=== PATIENT | female | born 1940 | race Caucasian/White ===

== ENCOUNTER 2016-09-17 11:34 | Outpatient (CLI) ==
[2016-09-17 12:46] LABS: BILIRUBIN,URINE Negative (NEGATIVE); KETONES,URINE Negative (NEGATIVE); LEUKOCYTE ESTERASE ,URINE 1+ (NEGATIVE); NITRITE,URINE Negative (NEGATIVE); PH,URINE 5.5 (5-9); PROTEIN,URINE Negative (NEGATIVE); URINE, BLOOD Negative (NEGATIVE)
[2016-09-17 12:48] LABS: BASOPHILS % (AUTO) 0.5 % (0.0-3.0); EOSINOPHILS # (AUTO) 0.1 K/ul (0.0-0.7); HEMATOCRIT 36.3 % (37.0-47.0); IMMATURE GRANULOCYTE % (AUTO) 0.2 % (0.0-5.0); LYMPHOCYTES # (AUTO) 1.6 K/uL (0.60-3.4); LYMPHOCYTES % (AUTO) 26.6 (10.0-50.0); MEAN CORPUSCULAR HEMOGLOBIN 30.7 pg (27.0-31.0); MEAN CORPUSCULAR HGB CONC 33.1 (31.8-35.4); MEAN CORPUSCULAR VOLUME 92.8 fl (81.0-99.0); MONOCYTES # (AUTO) 0.5 K/uL (0.4-2.0); MONOCYTES % (AUTO) 8.6 (0-10); NEUTROPHILS # (AUTO) 3.7 K/ul (2.0-6.9); NEUTROPHILS % (AUTO) 62.1; PLATELET COUNT 183 10^3/uL (140-440); RED BLOOD COUNT 3.91 10^6/ul (4.20-5.40); WHITE BLOOD COUNT 6.02 K/ul (4.6-10.2)
[2016-09-17 12:49] LABS: ADD URINE MICROSCOPIC YES
[2016-09-17 12:50] LABS: BACTERIA,URINE 1+ (NOT PRESENT)
[2016-09-17 13:06] LABS: ALBUMIN 3.5 g/dL (3.4-5.0); ALBUMIN/GLOBULIN RATIO 0.95; ANION GAP 14.4; BILIRUBIN,TOTAL 0.58 mg/dL (0.00-1.20); BUN/CREATININE RATIO 13.82; CALCIUM 8.2 mg/dL (8.2-10.2); CREATININE 0.94 mg/dL (0.60-1.30); POTASSIUM 3.4 mmol/L (3.5-5.10); TOTAL PROTEIN 7.2 g/dL (5.8-8.1)
== END 2016-09-17 11:35 | disposition home or self-care (01) ==
LOC: LAB 11:34
PROVIDERS: ATTEND General Practice
DX: E78.5 Hyperlipidemia, unspecified (principal); I10 Essential (primary) hypertension; N18.3 Chronic kidney disease, stage 3 (moderate); Z79.899 Other long term (current) drug therapy
CPT/HCPCS: 36415; 80053; 80061; 81001; 85025; 87086

== ENCOUNTER 2016-10-27 14:23 | Outpatient (CLI) ==
--- NOTE | 2016-10-27 15:20 | DI ---
EXAM: Single view the pelvis. History: Pelvic pain and trauma. Findings: No acute fracture or dislocation. Bilateral hip joint spaces are preserved. Degenerativ e changes seen within the lower lumbar spine. Mild enthesiopathy of the bilateral iliac wings. Non specific pelvic calcifications are probably phleboliths. Impression: No acute osseous abnormality.
--- NOTE | 2016-10-27 15:21 | DI ---
EXAM: Four views of the sacrum and coccyx. History: Lower back pain. Findings: No fractures are seen. Grade 1 anterolisthesis of L4 on L5. Minimal anterolisthesis of L3 on L4. Atherosclerotic vascular calcifications. Moderate disc space narrowing at L5-S1. Modera te to severe facet hypertrophy seen within the lower lumbar spine. Nonspecific pelvic calcification s are probably phleboliths. Impression: No acute fracture. Other findings as detailed above.
--- NOTE | 2016-10-27 15:27 | DI ---
EXAM: LUMBAR SPINE 5 VIEWS HISTORY: Radiculopathy, lumbosacral region FINDINGS: Lumbar spine five views including bilateral obliques. No comparison. Bone density appea rs mildly decreased. There is mild scoliosis convex to the right. No pars defect is identified. T here is severe facet arthropathy of the lower lumbar spine and lumbosacral junction. Early degenera tive endplate changes thoracolumbar junction. No loss of vertebral body height or acute fracture. There is anterior spondylolisthesis of L4 on L5 by about 0.69 cm. Sacroiliac joints within normal li mits. Incidental note of atherosclerotic disease. IMPRESSION: Significant degenerative facet disease lower spine with anterior spondylolisthesis of L 4 on L5 by about 0.69 cm. Scoliosis.
--- NOTE | 2016-10-27 15:40 | DI ---
EXAM: LEFT HIP, 2 VIEWS HISTORY: Left hip pain FINDINGS: Hip joint appears normal. There may be minimal arthropathy of the left sacroiliac joint. No fracture or dislocation is identified. IMPRESSION: Hip within normal limits. Possible early arthropathy of the left sacroiliac joint.
== END 2016-10-27 14:24 | disposition home or self-care (01) ==
LOC: RAD 14:23
PROVIDERS: ATTEND General Practice
DX: M54.17 Radiculopathy, lumbosacral region (principal); M53.3 Sacrococcygeal disorders, not elsewhere classified; M25.552 Pain in left hip

== ENCOUNTER 2017-03-06 12:52 | Outpatient (CLI) ==
[2017-03-06 13:22] LABS: BASOPHILS % (AUTO) 0.5 % (0.0-3.0); EOSINOPHILS # (AUTO) 0.1 K/ul (0.0-0.7); EOSINOPHILS % (AUTO) 2.2 % (0.0-7.0); HEMATOCRIT 37.4 % (37.0-47.0); HEMOGLOBIN 12.7 g/dl (12.0-16.0); IMMATURE GRANULOCYTE % (AUTO) 0.3 % (0.0-5.0); LYMPHOCYTES # (AUTO) 1.3 K/uL (0.60-3.4); LYMPHOCYTES % (AUTO) 19.9 (10.0-50.0); MEAN CORPUSCULAR VOLUME 91.2 fl (81.0-99.0); MONOCYTES # (AUTO) 0.5 K/uL (0.4-2.0); MONOCYTES % (AUTO) 8.5 (0-10); NEUTROPHILS # (AUTO) 4.4 K/ul (2.0-6.9); NEUTROPHILS % (AUTO) 68.6; PLATELET COUNT 230 10^3/uL (140-440); WHITE BLOOD COUNT 6.38 K/ul (4.6-10.2)
[2017-03-06 13:26] LABS: BILIRUBIN,URINE Negative (NEGATIVE); KETONES,URINE Negative (NEGATIVE); LEUKOCYTE ESTERASE ,URINE Trace (NEGATIVE); NITRITE,URINE Negative (NEGATIVE); PH,URINE 5.5 (5-9); PROTEIN,URINE Negative (NEGATIVE); URINE, BLOOD Negative (NEGATIVE)
[2017-03-06 13:39] LABS: ADD URINE MICROSCOPIC YES
[2017-03-06 13:40] LABS: BACTERIA,URINE TRACE (NOT PRESENT)
[2017-03-06 14:05] LABS: POTASSIUM 3.7 mmol/L (3.5-5.10)
[2017-03-06 14:06] LABS: ALBUMIN 3.6 g/dL (3.4-5.0); ALBUMIN/GLOBULIN RATIO 1.03; ANION GAP 16.7; BILIRUBIN,TOTAL 0.52 mg/dL (0.00-1.20); BUN/CREATININE RATIO 13.54; CHOL/HDL RATIO 3.9 (4.5-5.5); CREATININE 0.96 mg/dL (0.60-1.30); TOTAL PROTEIN 7.1 g/dL (5.8-8.1)
== END 2017-03-06 12:53 | disposition home or self-care (01) ==
LOC: LAB 12:52
PROVIDERS: ATTEND General Practice
DX: E78.5 Hyperlipidemia, unspecified (principal); N18.3 Chronic kidney disease, stage 3 (moderate); I10 Essential (primary) hypertension; Z79.899 Other long term (current) drug therapy
CPT/HCPCS: 36415; 80053; 80061; 81001; 85025

== ENCOUNTER 2017-07-21 17:16 | Outpatient (CLI) | END 2017-07-21 17:17 | disposition home or self-care (01) | LOC: LAB 17:16 | PROVIDERS: ATTEND General Practice | DX: H57.8 Other specified disorders of eye and adnexa (principal) | CPT/HCPCS: 87070 ==

== ENCOUNTER 2017-08-10 12:06 | Outpatient (CLI) | END 2017-08-10 12:07 | disposition home or self-care (01) | LOC: LAB 12:06 | PROVIDERS: ATTEND General Practice | DX: E78.5 Hyperlipidemia, unspecified (principal); I10 Essential (primary) hypertension; N18.3 Chronic kidney disease, stage 3 (moderate); Z79.899 Other long term (current) drug therapy | CPT/HCPCS: 36415; 80053; 80061; 81001; 85025 ==

== ENCOUNTER 2017-08-12 12:44 | Outpatient (CLI) | END 2017-08-12 12:45 | disposition home or self-care (01) | LOC: LAB 12:44 | PROVIDERS: ATTEND General Practice | DX: R73.9 Hyperglycemia, unspecified (principal) | CPT/HCPCS: 36415; 83037 ==

== ENCOUNTER 2017-12-03 12:35 | Outpatient (CLI) | payer OTHER | END 2017-12-03 12:36 | disposition home or self-care (01) | LOC: FCC-LAB 12:35 | PROVIDERS: ATTEND General Practice | DX: E78.5 Hyperlipidemia, unspecified (principal); I10 Essential (primary) hypertension; N18.3 Chronic kidney disease, stage 3 (moderate); R73.09 Other abnormal glucose; Z79.899 Other long term (current) drug therapy | CPT/HCPCS: 36415; 80053; 80061; 81001; 83036; 83525; 85025 ==

== ENCOUNTER 2018-04-05 10:48 | Outpatient (CLI) | END 2018-04-05 10:49 | disposition home or self-care (01) | LOC: FCC-LAB 10:48 | PROVIDERS: ATTEND General Practice | DX: E78.5 Hyperlipidemia, unspecified (principal); I10 Essential (primary) hypertension; N18.3 Chronic kidney disease, stage 3 (moderate); Z79.899 Other long term (current) drug therapy | CPT/HCPCS: 36415; 80053; 80061; 81001; 85025 ==

== ENCOUNTER 2018-08-02 08:30 | Outpatient (CLI) | payer OTHER | END 2018-08-02 08:31 | disposition home or self-care (01) | LOC: RHC-LAB 08:30 | PROVIDERS: ATTEND General Practice | DX: E78.5 Hyperlipidemia, unspecified (principal); N18.3 Chronic kidney disease, stage 3 (moderate); I10 Essential (primary) hypertension; Z79.899 Other long term (current) drug therapy | CPT/HCPCS: 36415; 80053; 80061; 81001; 83036; 85025 ==

== ENCOUNTER 2018-11-02 08:15 | Outpatient (CLI) | payer OTHER | END 2018-11-02 08:16 | disposition home or self-care (01) | LOC: RHC-LAB 08:15 | PROVIDERS: ATTEND General Practice | DX: E78.5 Hyperlipidemia, unspecified (principal); I10 Essential (primary) hypertension; E11.9 Type 2 diabetes mellitus without complications; Z79.899 Other long term (current) drug therapy | CPT/HCPCS: 36415; 80053; 80061; 81001; 83036; 85025 ==

== ENCOUNTER 2019-01-06 08:08 | Outpatient (CLI) | END 2019-01-06 08:09 | disposition home or self-care (01) | LOC: RHC-LAB 08:08 | PROVIDERS: ATTEND General Practice | DX: E78.5 Hyperlipidemia, unspecified (principal); I10 Essential (primary) hypertension; E11.9 Type 2 diabetes mellitus without complications | CPT/HCPCS: 36415; 80061; 83036 ==